=== PATIENT | female | born 1985 | race American Indian/Alaskan Native ===

== ENCOUNTER 2022-02-11 06:12 | Day surgery (SDC) | payer MEDICAID ==
[~2022-02-11 06:12] MED LIST: ACETAMINOPHEN 500 MG TAB PO SCH; CELECOXIB 200 MG CAP PO NR; GABAPENTIN 300 MG CAP PO NR; LACTATED RINGERS 1,000 ML IV SCH; MIDAZOLAM 2 MG/2 ML INJ IV NR; SCOPOLAMINE TRANSDERMAL PATCH 72 HR TD NR; fentaNYL 100 MCG/2 ML INJ IV PRN
[2022-02-11] MEDS ORDERED: ceFAZolin/STERILE WATER 2 GM/20 ML SYRINGE IV NR (07:00)
[2022-02-11 07:33] LABS: Hematocrit 35.4 % (30.3-42.9); Hemoglobin 11.4 gm/dl (10.1-14.3); Mean Corpuscular HGB Conc 32 % (30-34); Mean Corpuscular Volume 85 fl (79-97); Platelet Count 283 K/mm3 (140-440); Red Blood Count 4.17 M/mm3 (3.65-5.03); Red Cell Distribution Width 14.3 % (13.2-15.2)
[2022-02-11] MEDS ORDERED: BUPIVACAINE-EPINEPHRINE/PF 0.25%-1:200,000 (30 ML) VIAL INFILTRATI ONE (07:33)
[2022-02-11] MEDS ORDERED: BUPIVACAINE/PF (0.5%) 5 MG/1 ML 30 ML VIAL INFILTRATI ONE (07:33)
[2022-02-11] MEDS ORDERED: dexAMETHasone 4 MG/ML VIAL ONE (07:33)
--- NOTE | 2022-02-11 07:36 | Anesthesia Consultation ---
Anesthesia Consult and Med Hx Date of service: 02/11/22 - Airway Anesthetic Teeth Evaluation: Good ROM Head & Neck: Adequate Mental/Hyoid Distance: Adequate Mallampati Class: Class II Intubation Access Assessment: Probably Good - Pre-Operative Health Status ASA Pre-Surgery Classification: ASA1 Proposed Anesthetic Plan: General Nerve Block: TAP - Pulmonary Hx Smoking: No Hx Respiratory Symptoms: No - Cardiovascular System Hx Hypertension: No - Central Nervous System CVA: No - Endocrine Hx Renal Disease: No Hx Liver Disease: No Hx Insulin Dependent Diabetes: No Hx Non-Insulin Dependent Diabetes: No Hx Thyroid Disease: No - Additional Comments Anesthesia Medical History Comments: No prior GA. No FHx anesthetic complications.
--- NOTE | 2022-02-11 07:36 | Anesthesia Day of Surgery ---
Anesthesia Day of Surgery - Day of Surgery Patient Examined: Yes Patient H&P Reviewed: Yes Patient is NPO: Yes
[2022-02-11] MEDS ORDERED: ONDANSETRON 4 MG/2 ML INJ ONE (07:38)
[2022-02-11] MEDS ORDERED: propofoL 200 MG/20 ML VIAL IV ONE (07:38)
[2022-02-11] MEDS ORDERED: ROCURONIUM 50 MG/5 ML INJ IV ONE (07:38)
[2022-02-11] MEDS ORDERED: HYDROmorphone 1 MG/1 ML INJ ONE (07:38)
[2022-02-11] MEDS ORDERED: LIDOCAINE MPF (2%) 20 MG/1 ML VIAL 5 ML ONE (07:38)
[2022-02-11 08:00] LABS: Blood Urea Nitrogen 10 mg/dL (7-17); Calcium 8.8 mg/dL (8.4-10.2); Hemolysis Index 33
[2022-02-11 08:09] LABS: BUN/Creatinine Ratio 20
[2022-02-11] MEDS ORDERED: SODIUM CHLORIDE 0.9% IRR 1,500 ML BOTTLE IR ONE (09:12)
[2022-02-11] MEDS ORDERED: WATER FOR IRRIG STERILE 1,500 ML BOTTLE IR ONE (09:12)
[2022-02-11] MEDS ORDERED: dexAMETHasone 20 MG/5 ML VIAL ONE (10:10)
[2022-02-11] MEDS ORDERED: NEOSTIGMINE 10MG/10 ML INJ MDV ONE (10:11)
[2022-02-11] MEDS ORDERED: GLYCOPYRROLATE 0.4 MG/2 ML INJ ONE (10:11)
--- NOTE | 2022-02-11 11:09 | Short Stay Summary ---
Short Stay Documentation Date of service: 02/11/22 - History Principal diagnosis: ventral and umbilical hernia H&P: obtained from office - Allergies and Medications Current Medications: Allergies No Known Allergies Allergy (Verified 02/07/22 17:30) Home Medications Medication Instructions Recorded Confirmed Last Taken Type RX: No Known Home Medications [No 02/07/22 02/07/22 Unknown History Reported Home Medications] Active Medications Acetaminophen (Acetaminophen 500 Mg Tab) 1,000 mg PO PREOP MIRANDA Stop: 02/11/22 23:59 Last Admin: 02/11/22 07:10 Dose: 1,000 mg Cefazolin Sodium (Cefazolin/Sterile Water 2 Gm/20 Ml Syringe) 2 gm IV PREOP NR Stop: 02/11/22 23:59 Celecoxib (Celecoxib 200 Mg Cap) 200 mg PO PREOP NR Stop: 02/11/22 23:59 Last Admin: 02/11/22 07:10 Dose: 200 mg Fentanyl (Fentanyl 100 Mcg/2 Ml Inj) 100 mcg IV ONCE PRN PRN Reason: sedation for nerve block Stop: 02/11/22 23:59 Last Admin: 02/11/22 07:42 Dose: 100 mcg Gabapentin (Gabapentin 300 Mg Cap) 300 mg PO PREOP NR Stop: 02/11/22 23:59 Last Admin: 02/11/22 07:10 Dose: 300 mg Lactated Ringer's (Lactated Ringers) 1,000 mls @ 100 mls/hr IV DIRECT MIRANDA Stop: 02/11/22 23:59 Last Admin: 02/11/22 07:15 Dose: 100 mls/hr Midazolam HCl (Midazolam 2 Mg/2 Ml Inj) 2 mg IV PREOP NR Stop: 02/11/22 23:59 Last Admin: 02/11/22 07:42 Dose: 2 mg Scopolamine (Scopolamine Transdermal Patch 72 Hr) 1 each TD PREOP NR Stop: 02/11/22 23:59 Last Admin: 02/11/22 07:10 Dose: 1 each - Brief post op/procedure progress note Date of procedure: 02/11/22 Pre-op diagnosis: venral and umbilical hernia Post-op diagnosis: same Procedure: robotic assisted ventral and umbilical hernia repair with mesh Anesthesia: GETA, other (TAP block) Findings: Supraumbilical ventral hernia containing large amount of incarcerated preperitoneal fat Umbilical hernia with scarred sac Total hernia defect measuring 7cm x 4 cm repaired with 16 cm x 12 cm bard ventralite composite mesh Surgeon: JEREMIAS WELCH Mini Baccarat Dealer: CARSON ARGUELLES Estimated blood loss: minimal Pathology: none Condition: stable - Hospital course Hospital course: Pt observed in PACU and discharged to home in stable condition - Disposition Condition at discharge: Good Disposition: 01 HOME / SELF CARE / HOMELESS Short Stay Discharge Plan Activity: other (no heavy lifting. no driving while taking prescription pain medication) Diet: regular Wound: open to air Additional Instructions: see printed instructions Follow up with: PRIMARY CARE,MD [Primary Care Provider] - 7 Days JEREMIAS WELCH DO [Staff Physician] - 14 Days Prescriptions: RX: Gabapentin 300 mg PO BID 3 Days #6 capsule Ibuprofen [Motrin] 800 mg PO Q8HR PRN #30 tablet PRN Reason: Pain, Moderate (4-6) HYDROcodone/APAP 5-325 [[place]orn[place] 5/325] 1 each PO Q6HR PRN #20 tablet PRN Reason: Pain , Severe (7-10)
--- NOTE | 2022-02-11 12:08 | Operative Report ---
Operative Report Operative Report: Date of procedure: 02/11/22 Pre-op diagnosis: venral and umbilical hernia Post-op diagnosis: same Procedure: robotic assisted ventral and umbilical hernia repair with mesh Anesthesia: GETA, other (TAP block) Findings: Supraumbilical ventral hernia containing large amount of incarcerated preperitoneal fat Umbilical hernia with scarred sac Total hernia defect measuring 7cm x 4 cm repaired with 16 cm x 12 cm bard ventralite composite mesh Surgeon: JEREMIAS WELCH Director Of Physical Therapy: CARSON ARGUELLES Estimated blood loss: minimal Pathology: none Condition: stable Hospital course: Pt observed in PACU and discharged to home in stable condition Condition at discharge: Good Disposition: 01 HOME / SELF CARE / HOMELESS HPI and indication: 36 year-old female who presents to surgery clinic for evaluation of a bulge above the umbilicus. This bulge has been present for some time and was reducible on exam. The patient did not have symptoms on initial presentation and was being observed. Recently the patient began having pain at the site of the hernia and elected to proceed with repair. A small umbilical hernia was also present on exam along with a midline supraumbilical ventral hernia. All risk, benefits, alternatives surgery discussed with patient questions answered. It was recommended that the hernia be repaired robotically. Alternatives such as open versus laparoscopic repair were also discussed. The patient was in agreement and consent obtained. Procedure in detail: The patient was identified in the preoperative area and taken back to the operating room and placed on the operating room table in supine position. After anesthesia was induced, both arms were tucked with all bony prominences padded appropriately. The abdomen was then prepped and draped in usual sterile fashion and a timeout was performed. The patient had a TAP block performed by anesthesia preoperatively. She was placed in mild extension. A madhuri incision was made in the left upper quadrant at Hernandez's point through which a Veress needle was inserted. The Veress needle position was confirmed using the saline drop test and the abdomen insufflated to 15 mmHg without incident. A 5 mm incision was made in the left upper quadrant through which a 5 mm Optiview trocar was placed under direct visualization. The abdomen was inspected and there was no underlying injury to any of the abdominal structures. The Veress needle was identified and removed. A 8 mm robotic trocar was placed in the left lateral abdomen and an 8 mm robotic trocar in the left lower quadra nt under direct visualization. The 5 mm left upper quadrant trocar was replaced with an 8 mm robotic trocar under direct visualization. The patient was tilted to the right and the robot docked. A forced bipolar was placed in arm #2, camera in arm #3 and a monopolar scissor in arm #4. The surgeon was then transferred to the console. I started by creating a preperitoneal flap to the left of the hernia defects. The peritoneum was scored to the left of the hernia defect using a monopolar scissor and a preperitoneal plane developed in an avascular plane. Using a combination of blunt dissection and cautery the plane superior to and inferior to the hernias was developed. There was a large amount of preperitoneal fat incarcerated in the supraumbilical ventral hernia which was carefully dissected and reduced. The sac was gently reduced from the umbilical hernia but was densely adhered to the skin and could not be completely. I attempted to reduce the hernia sac however this was densely adhered to the skin. In order to prevent injury to the skin the hernia sac was transected. I then carried my preperitoneal dissection to the right aspect of the hernia defect in order to accommodate mesh placement. The patient's peritoneum was thin and several small peritoneal defects were created during the dissection. Once the dissection was complete the pocket was checked for hemostasis. The hernia defect was measured at 7 cm craniocaudal by 4 cm wide. It was decided to fix the hernia with a 16cm x 12cm cm Bard ventralite composite mesh. The mesh along with suture material placed into the abdomen by the office clerk assistant. First the hernia defects were closed using a 0- VLoc running stitch. The pressure in the abdomen was turned down to 8 mmHg. The mesh was then placed in the preperitoneal space and centered. The uncoated side was placed against the abdominal wall. The mesh was sutured into place in all 4 quadrants using interrupted 2-0 Vicryl stitches. The mesh laid flat in the preperitoneal space with adequate overlap of the hernia. The peritoneum was approximated using 3 0 VLoc running stitch. Defects in the peritoneum were approximated using a 3 0 V-Loc running stitch x2. All sharp and suture material was removed under direct visualization by the office clerk assistant surgeon. The ports were removed. All skin incisions were closed with 4-0 monocryl subcuticular stitches and skin glue. A 4 x 4 gauze was balled up and placed at the umbilicus and site of supraumbilical hernia and secured with a Tegaderm. At the end of the case, all sponge, instrument, sharp counts were correct 2. An abdominal binder was applied to the patient. The patient was awoken from anesthesia, extubated and taken to PACU in stable condition.
[2022-02-11 13:43] VITALS: BP 118/70
--- NOTE | 2022-02-11 14:52 | Post Anesthesia Evaluation ---
- Post Anesthesia Evaluation Patient Participated: Yes Airway Patent: Yes Stable Respiratory Function: Yes Nausea/Vomiting: No Temp > 96.8F: Yes Pain Manageable: Yes Adequeate Hydration: Yes Anesthesia Complications: No
== END 2022-02-11 13:15 | disposition home or self-care (01) ==
LOC: OR 06:12
PROVIDERS: ATTEND Surgery
DX: K43.6 Other and unspecified ventral hernia with obstruction, without gangrene (principal); K42.0 Umbilical hernia with obstruction, without gangrene; G43.909 Migraine, unspecified, not intractable, without status migrainosus; E78.00 Pure hypercholesterolemia, unspecified; Z79.899 Other long term (current) drug therapy; Z98.890 Other specified postprocedural states
CPT/HCPCS: 36415; 49653; 64488; 80048; 81025; 85027; C1781; J0690; J1100; J1170; J1815; J2250; J2405; J2704; J2710; J3010; J3490; J7120; S2900; 64450